=== PATIENT | male | born 1965 | race Caucasian/White ===

== ENCOUNTER 2017-06-21 15:06 | Emergency (ER) | payer OTHER ==
[~2017-06-21] VITALS: Ht 177.8 cm; Wt 72.1 kg
[~2017-06-21 15:06] MED LIST: AMOXICILLIN 50500 MG PO; AZITHROMYCIN 2250 MG PO; BENICAR 5 MG5 M1 PO; LORTAB 5-500 T1 EAC1 PO; MEDROL DOSPAK21 TAB PO; OXYCONTIN10 M1 PO; PHENERGAN-CODE120 ML PO; TRAZODONE 150150 M1 PO; VENTOLIN HFA 1818 GM INH; XANAX XR1 MG PO
[2017-06-21] MEDS ORDERED: LAMICTAL100 MG PO (15:25)
[2017-06-21 15:52] LABS: ABSOLUTE EOSINOPHILS 0.3 thou/uL (0.0-0.7); ABSOLUTE LYMPHOCYTES 1.5 thou/uL (0.8-5.3); ABSOLUTE MONOCYTES 0.5 thou/uL (0.0-1.2); BASOPHILS 0.8 %; EOSINOPHILS 4.4 %; HEMATOCRIT 37.2 % (42.0-52.0); HEMOGLOBIN 12.5 gm/dL (14.0-18.0); LYMPHOCYTES 23.6 %; MCH 29.2 pg (26.0-34.0); MCHC 33.7 g/dL (28.0-37.0); MCV 86.5 fL (80.0-100.0); MONOCYTES 8.3 %; MPV 7.4 fl. (7.2-11.1); NUCLEATED RBCS 0 /100WBC; PLATELET COUNT* 221 thou/uL (150-400); POLYS 62.9 %; RDW-CV 14.1 % (10.5-14.5); WBC 6.4 thou/uL (4.0-11.0)
[2017-06-21 16:01] LABS: ANION GAP 3 mmol/L (7-16); BUN 19 mg/dL (7-18); CALCIUM 8.3 mg/dL (8.5-10.1); CHLORIDE 105 mmol/L (98-107); CO2 33 mmol/L (21-32); GLUCOSE 92 mg/dL (70-99); SODIUM 141 mmol/L (136-145)
[2017-06-21 16:05] LABS: APTT 27.8 Seconds (25.0-31.3); INR 1.1; PROTIME 10.7 Seconds (9.20-11.50)
[2017-06-21 16:12] LABS: ALBUMIN 3.4 g/dL (3.4-5.0); ALKALINE PHOSPHATASE 65 U/L (46-116); NT-PRO BRAIN NAT PEPTIDE 32 pg/mL (<300); SGOT 17 U/L (15-37); SGPT 20 U/L (30-65); TOTAL BILIRUBIN 0.3 mg/dL (<0.1-1.0); TOTAL PROTEIN 6.9 g/dL (6.4-8.2); TROPONIN-I LEVEL <0.06 ng/mL (<0.06)
[2017-06-21 16:28] LABS: INFLUENZA A ANTIGEN None Detected (None Detect); INFLUENZA B ANTIGEN None Detected (None Detect)
[2017-06-21] MEDS ORDERED: DOXYCYCLINE 10100 MG PO (17:37)
[2017-06-21 18:04] VITALS: BP 105/50
--- NOTE | 2017-06-22 10:22 | EKG ---
[place] [address] ELECTROCARDIOGRAM REPORT Name: JE REDDING Room: [facility]#: [id number] Admission: 06/21/17 Attend Phys: Discharge: 06/21/17 Date of : 61 Report #: [id number] THIS REPORT FOR: //name// [facility] ED Test Date: 2017-06-21 Test Time: 15:43:07 Pat Name: JE REDDING Department: Room: Gender: Safety Physician: Jose HAZEL : 1965 Requested By: Jimmy Mckeon Order Number: [id number] MD: Michael La Measurements Intervals [place] Rate: 59 P: DE: QRS: 0 QRSD: 91 T: 13 QT: 400 QTc: 397 Interpretive Statements sinus bradycardia Borderline low voltage, extremity leads Compared to ECG 07/16/2013 07:59:16 Sinus rhythm no longer present Electronically Signed On 06-22-2017 10:22:48 HOD CARRIER by Michael La [email or web address] <ELECTRONICALLY SIGNED> By: Michael La MD, [facility] 06/22/17 1022 1543 1543 Michael La MD, FACC /EPI
== END 2017-06-21 18:05 | disposition home or self-care (01) ==
LOC: M.ERS 15:06
PROVIDERS: Emergency Medicine Emergency Medical Services
DX: J40 Bronchitis, not specified as acute or chronic (principal); I10 Essential (primary) hypertension

== ENCOUNTER 2017-12-18 11:04 | Emergency (ER) | payer OTHER ==
[~2017-12-18] VITALS: Ht 177.8 cm; Wt 99.8 kg
[~2017-12-18 11:04] MED LIST changes: +DOXYCYCLINE 10100 MG PO; +LAMICTAL100 MG PO
[2017-12-18] MEDS ORDERED: OXYCONTIN10 M1 PO (11:15)
[2017-12-18 11:30] VITALS: BP 146/100
[2017-12-18] MEDS ORDERED: NORCO 5-325 TA1 EACH PO (11:31)
[2017-12-18] MEDS ORDERED: MOBIC7.5 MG PO (11:31)
[2017-12-18] MEDS ORDERED: BACTRIM DS TAB1 EACH PO (11:31)
== END 2017-12-18 11:42 | disposition home or self-care (01) ==
LOC: M.ERS 11:04
DX: J01.00 Acute maxillary sinusitis, unspecified (principal); J01.10 Acute frontal sinusitis, unspecified; I10 Essential (primary) hypertension

== ENCOUNTER 2018-05-31 00:42 | Emergency (ER) | payer OTHER ==
[~2018-05-31] VITALS: Ht 177.8 cm; Wt 120.2 kg
[~2018-05-31 00:42] MED LIST changes: +BACTRIM DS TAB1 EACH PO; +MOBIC7.5 MG PO; +NORCO 5-325 TA1 EACH PO
[2018-05-31 00:54] VITALS: BP 141/70
== END 2018-05-31 01:03 ==
LOC: M.ERS 00:42
DX: F41.9 Anxiety disorder, unspecified (principal); I10 Essential (primary) hypertension

== ENCOUNTER 2020-03-04 11:49 | Emergency (ER) | payer MEDICARE ==
[~2020-03-04] VITALS: Ht 177.8 cm; Wt 136.1 kg
[2020-03-04] MEDS ORDERED: ZPAK PO (12:36)
[2020-03-04] MEDS ORDERED: MEDROLDOSEPACK PO (12:36)
[2020-03-04] MEDS ORDERED: TESSALON PERLE100 MG PO (12:36)
[2020-03-04] MEDS ORDERED: APAP W/CODEINE1 TA2 PO (12:36)
[2020-03-04 12:44] VITALS: BP 169/108
[2020-03-04 12:58] LABS: INFLUENZA A ANTIGEN Negative (Negative); INFLUENZA B ANTIGEN Negative (Negative)
== END 2020-03-04 12:45 | disposition home or self-care (01) ==
LOC: M.ERS 11:49
PROVIDERS: Physician Assistant
DX: J20.9 Acute bronchitis, unspecified (principal); Z20.828 Contact with and (suspected) exposure to other viral communicable diseases; I10 Essential (primary) hypertension

== ENCOUNTER 2020-03-23 14:10 | Emergency (ER) | payer MEDICARE ==
[~2020-03-23] VITALS: Ht 177.8 cm; Wt 136.1 kg
[~2020-03-23 14:10] MED LIST changes: +APAP W/CODEINE1 TA2 PO; +MEDROLDOSEPACK PO; +TESSALON PERLE100 MG PO; +ZPAK PO
[2020-03-23] MEDS ORDERED: DESYREL150 MG PO (14:21)
[2020-03-23 14:37] LABS: ABSOLUTE LYMPHOCYTES 1.1 thou/uL (0.8-5.3); ABSOLUTE MONOCYTES 0.4 thou/uL (0.0-1.2); ABSOLUTE NEUTROPHILS 1.8 thou/uL (1.6-8.1); BASOPHILS 0.3 %; EOSINOPHILS 0.5 %; HEMATOCRIT 41.7 % (42.0-52.0); HEMOGLOBIN 14.1 gm/dL (14.0-18.0); LYMPHOCYTES 32.4 %; MCH 28.6 pg (26.0-34.0); MCHC 33.7 g/dL (28.0-37.0); MCV 84.8 fL (80.0-100.0); MONOCYTES 12.4 %; NUCLEATED RBCS 0 /100WBC; PLATELET COUNT* 193 thou/uL (150-400); POLYS 54.4 %; RBC 4.92 mil/uL (4.50-6.00); RDW-CV 13.9 % (10.5-14.5); WBC 3.3 thou/uL (4.0-11.0)
[2020-03-23 14:40] LABS: CALCIUM 7.9 mg/dL (8.5-10.1); POTASSIUM 3.4 mmol/L (3.5-5.1)
[2020-03-23 14:47] LABS: APTT 25.6 Seconds (25.0-31.3); PROTIME 10.3 Seconds (9.20-11.50)
[2020-03-23 14:53] LABS: ALBUMIN 3.3 g/dL (3.4-5.0); CK-MB MASS 0.9 ng/mL (<0.5-3.6); MAGNESIUM 2.2 mg/dL (1.8-2.4); TOTAL BILIRUBIN 0.4 mg/dL (<0.1-1.0); TOTAL PROTEIN 7.5 g/dL (6.4-8.2)
--- NOTE | 2020-03-23 15:44 | EKG ---
[place] [address] ELECTROCARDIOGRAM REPORT Name: JE REDDING Room: [facility]#: [id number] Admission: 03/23/20 Attend Phys: Discharge: Date of : 61 Date of Service: 03/23/20 1417 Report #: [id number] THIS REPORT FOR: //name// [facility] ED Test Date: 2020-03-23 Test Time: 14:17:19 Pat Name: JE REDDING Department: Room: Gender: 911 Telecommunicator: IN : 1965 Requested By: Abdelrahman Stevens Order Number: [id number] MD: Mart Rich Measurements Intervals [place] Rate: 81 P: -10 OR: 194 QRS: -27 QRSD: 88 T: 23 QT: 420 QTc: 488 Interpretive Statements Sinus rhythm Abnormal R-wave progression, late transition Inferior infarct, old Compared to ECG 06/21/2017 15:43:07 Myocardial infarct finding now present Sinus bradycardia no longer present Electronically Signed On 03-23-2020 15:44:14 HOUSE CARPENTER HELPER by Mart Rich [email or web address] <ELECTRONICALLY SIGNED> By: Tim Rich MD, FAC 03/23/20 1544 1417 1417 Tim Rich MD, [facility] /EPI
[2020-03-23 16:51] VITALS: BP 151/99
== END 2020-03-23 16:51 | disposition home or self-care (01) ==
LOC: M.ERS 14:10
PROVIDERS: Emergency Medicine
DX: J12.9 Viral pneumonia, unspecified (principal); B34.9 Viral infection, unspecified; M54.5 Low back pain; R42 Dizziness and giddiness; Z20.828 Contact with and (suspected) exposure to other viral communicable diseases; I10 Essential (primary) hypertension; F41.9 Anxiety disorder, unspecified; Z79.899 Other long term (current) drug therapy